=== PATIENT | male | born 1955 | race Caucasian/White ===

== ENCOUNTER 2016-10-05 08:06 | Observation (INO) | payer BC ==
[~2016-10-05] VITALS: Ht 182.9 cm; Wt 105.0 kg
[2016-10-05] MEDS ORDERED: ASPIRIN 81 MG CHEW TAB ONE (08:36)
[2016-10-05] MEDS ORDERED: ONDANSETRON 4 MG VIAL ONE (09:38)
[2016-10-05] MEDS ORDERED: MORPHINE 4 MG/ML SYR ONE ×2 (09:38→12:11)
[2016-10-05] MEDS ORDERED: CEFTRIAXONE 1 GM VIAL ONE (11:27)
[2016-10-05] MEDS ORDERED: AZITHROMYCIN 500 MG VIAL IV ONE (11:27)
[2016-10-05] MEDS ORDERED: SODIUM CHLORIDE 0.9% 250 ML IV ONE (11:27)
[2016-10-05] MEDS ORDERED: ALU/MAG/SIM 30 ML UDC PO PRN (11:45)
[2016-10-05] MEDS ORDERED: DOCUSATE SOD 100 MG CAP PO PRN (11:45)
[2016-10-05] MEDS ORDERED: MORPHINE 2 MG/ML SYR IV PRN (11:45)
[2016-10-05] MEDS ORDERED: SALINE FLUSH 10 ML FLUSH PRN (11:45)
[2016-10-05] MEDS ORDERED: NITROGLYCERIN SL 0.4 MG TAB SL PRN (11:45)
[2016-10-05] MEDS ORDERED: ONDANSETRON 4 MG VIAL IV PRN (11:45)
[2016-10-05] MEDS ORDERED: ACETAMINOPHEN 325 MG TAB PO PRN (11:45)
[2016-10-05 14:41] VITALS: BP_SYST 134; BP_SYST 156; RESP 14; TEMP 97.2
[2016-10-05 14:42] VITALS: Ht 182.9 cm; Wt 105.0 kg
[2016-10-05] MEDS ORDERED: SODIUM CHLORIDE 0.9% 1,000 ML IV SCH (15:25)
[2016-10-05 20:00] VITALS: BP_SYST 144; RESP 16; TEMP 98.2
[2016-10-05] MEDS: FLUTICASONE 0.05% NA BTL NARE EACH SCH (20:08)
[2016-10-05] MEDS: SALINE FLUSH 10 ML FLUSH SCH (20:08)
[2016-10-05] MEDS: METOPROLOL XL 50 MG TAB PO SCH (20:09)
[2016-10-05] MEDS: METHOCARBAMOL 500 MG TAB PO SCH ×2 (20:09→23:34)
[2016-10-05] MEDS: TIZANIDINE 4 MG TAB PO SCH (20:09)
[2016-10-05] MEDS: GABAPENTIN 400 MG CAP PO SCH ×2 (20:09→20:17)
[2016-10-05] MEDS ORDERED: GABAPENTIN 400 MG CAP PO SCH (21:00)
[2016-10-05] MEDS ORDERED: METOPROLOL XL 50 MG TAB PO SCH (21:00)
[2016-10-05] MEDS: Atorvastatin 40 MG TAB PO SCH (23:34)
[2016-10-05] MEDS: TRAZODONE 50 MG TAB PO SCH (23:34)
[2016-10-05] MEDS: Hydrocodone/APAP 10/325 MG TAB PO SCH (23:35)
[2016-10-06] VITALS (8 sets, daily range): BP systolic 116–133; RESP 16–18; TEMP 97.6–98.7
[2016-10-06] MEDS ORDERED: SODIUM CHLORIDE 0.9% FLUSH BAG 500 ML IV SCH (06:00)
[2016-10-06] MEDS ORDERED: ASPIRIN 81 MG CHEW TAB PO SCH (08:00)
[2016-10-06] MEDS: FLUTICASONE 0.05% NA BTL NARE EACH SCH ×2 (08:12→20:03)
[2016-10-06] MEDS: GABAPENTIN 400 MG CAP PO SCH ×3 (08:14→20:04)
[2016-10-06] MEDS: METHOCARBAMOL 500 MG TAB PO SCH ×4 (08:16→20:04)
[2016-10-06] MEDS: TIZANIDINE 4 MG TAB PO SCH ×3 (08:17→20:04)
[2016-10-06] MEDS: SALINE FLUSH 10 ML FLUSH SCH ×2 (08:31→20:04)
[2016-10-06] MEDS: Hydrocodone/APAP 10/325 MG TAB PO SCH ×2 (08:31→20:05)
[2016-10-06] MEDS ORDERED: MISSING DOSE XX ONE (08:40)
[2016-10-06] MEDS ORDERED: CILOSTAZOL 100 MG TAB PO SCH (09:00)
[2016-10-06] MEDS ORDERED: CEFTRIAXONE 1 GM in SODIUM CHLORIDE 0.9% 50 ML IV SCH (09:00)
[2016-10-06] MEDS ORDERED: KCL CR 10 MEQ TAB PO SCH (09:00)
[2016-10-06] MEDS ORDERED: CLOPIDOGREL 75 MG TAB PO SCH ×2 (09:00)
[2016-10-06] MEDS ORDERED: PREDNISONE 20 MG TAB PO SCH (09:00)
[2016-10-06] MEDS ORDERED: Furosemide 40 MG TAB PO SCH (09:00)
[2016-10-06] MEDS ORDERED: AZITHROMYCIN 250 MG TAB PO SCH (09:00)
[2016-10-06] MEDS ORDERED: ENOXAPARIN 40 MG/0.4 ML SYR SUBQ SCH (09:00)
[2016-10-06] MEDS: METOPROLOL XL 50 MG TAB PO SCH ×2 (09:32→20:04)
[2016-10-06] MEDS: NEB-ALBUTEROL 2.5 MG/3 ML INH SCH ×3 (10:11→19:49)
[2016-10-06] MEDS: TRAZODONE 50 MG TAB PO SCH (20:04)
[2016-10-06] MEDS: Atorvastatin 40 MG TAB PO SCH (20:04)
== END 2016-10-06 17:02 | disposition home or self-care (01) ==
LOC: ENRESERVTM → ENRESERVDT → ER 08:06 → EMR 11:43 → PCU 14:15
PROVIDERS: ADMIT Internal Medicine; ATTEND Internal Medicine
DX: J18.9 Pneumonia, unspecified organism (principal); I10 Essential (primary) hypertension; Z87.891 Personal history of nicotine dependence; I73.9 Peripheral vascular disease, unspecified; I25.2 Old myocardial infarction; Z79.82 Long term (current) use of aspirin; Z79.02 Long term (current) use of antithrombotics/antiplatelets; I25.10 Atherosclerotic heart disease of native coronary artery without angina pectoris; Z95.1 Presence of aortocoronary bypass graft
CPT/HCPCS: 36415; 71010; 80053; 80061; 81003; 82550; 82553; 83735; 84145; 84484; 85025; 85610; 85730; 87040; 87278; 87804; 93005; 94640; 94664; 97799; G0378; J0696; J2270; J2405; J7050; J7512; 94799; 96374; 96375; 96376; 99217; 99220; 99226